=== PATIENT | male | born 1960 | race Caucasian/White ===

== ENCOUNTER 2017-07-18 11:11 | Inpatient (IN) | payer MEDICAID ==
--- NOTE | 2017-07-18 11:19 | ED PDOC ---
Arrival/HPI - General Chief Complaint: Chest Pain Time Seen by Provider: 07/18/17 11:14 Historian: Patient - History of Present Illness Narrative History of Present Illness (Text): 07/18/17 11:13 pt presents with sudden onset of substernal chest pain, diffuse, at most pain was 8/10 initially, that started ~ 3 hours ago. Pt was at work and lifting something when this chest pain occurred; pt states + slight diaphoresis, + mild sob, deep breathing causes increased chest pain with the onset of the chest pain ; pt states + mild lightheadedness/dizziness, nausea/vomiting, vomiting x 1 episode; NO LOC, no fever/chills, no palpitations, no abd pain, no numbness/ tingling, no urinary/bowel changes, no fall/trauma/sick contact, no guide travel denied rashes pt denied bleeding pt is here for further eval pt's without other complaints. PCP: pt does not remember Time/Duration: Prior to Arrival (3 hours) Symptom Onset: Sudden Symptom Course: Worsening Quality: Aching, Pressure, Tightness Severity Level: 8, Severe Activities at Onset: Other (was at work, lifting something) Context: Work Past Medical History - Provider Review Nursing Documentation Reviewed: Yes - Travel History Have you recently traveled outside [place] w/in the past 3 mons?: No - Past History Past History: No Previous - Infectious Disease Hx of Infectious Diseases: None - Tetanus Immunization Tetanus Immunization: Unknown - Cardiac Hx Hypertension: Yes - Psychiatric Hx Substance Use: No Family/Social History - Physician Review Nursing Documentation Reviewed: Yes Family/Social History: No Known Family HX Smoking Status: Never Smoked Hx Alcohol Use: Yes Frequency of alcohol use: Socially Hx Substance Use: No Allergies/Home Meds Allergies/Adverse Reactions: Allergies No Known Allergies Allergy (Verified 07/18/17 11:13) Home Medications: Home Meds Medication Instructions Recorded Confirmed hydroCHLOROthiazide [Microzide] 12.5 mg PO DAILY 07/18/17 07/18/17 Review of Systems - Review of Systems Constitutional: Fatigue Eyes: Normal ENT: Normal Respiratory: SOB Cardiovascular: Chest Pain Gastrointestinal: Nausea, Vomiting. absent: Abdominal Pain Genitourinary Male: Normal Musculoskeletal: Normal Skin: Normal Neurological: Dizziness Endocrine: Normal Hemo/Lymphatic: Normal Psychiatric: Normal Physical Exam Vital Signs Reviewed: Yes Vital Signs Temp Pulse Resp BP Pulse Ox 07/18/17 11:30 76 18 165/118 H 100 07/18/17 11:11 97.3 F L 70 18 184/117 H 100 Temperature: Afebrile Blood Pressure: Hypertensive Pulse: Regular Respiratory Rate: Normal Appearance: Positive for: Well-Appearing, Non-Toxic, Uncomfortable Pain Distress: Mild Mental Status: Positive for: Alert and Oriented X 3 - Systems Exam Head: Present: Atraumatic, Normocephalic Pupils: Present: PERRL Extroacular Muscles: Present: EOMI Conjunctiva: Present: Normal Ears: Present: Normal Mouth: Present: Moist Mucous Membranes, Normal Teeth Pharnyx: Present: Normal Nose (External): Present: Atraumatic Nose (Internal): Present: Normal Inspection Neck: Present: Normal Range of Motion, Trachea Midline, Other (no midline tenderness, no step off). No: Meningeal Signs, MIDLINE TENDERNESS Respiratory/Chest: Present: Clear to Auscultation, Good Air Exchange, Other ( CTA b/l, no w/r/r, no accessory muscle use noted; no tachypenia). No: Respiratory Distress, Accessory Muscle Use Cardiovascular: Present: Regular Rate and Rhythm, Normal S1, S2. No: Murmurs Abdomen: Present: Normal Bowel Sounds, Other (well nourished male, no focal tenderness, no masses/rebound/guarding/rigidity, no arambula's sign, no mcburney' s point tenderness). No: Tenderness, Distention Back: Present: Normal Inspection. No: CVA Tenderness, Midline Tenderness Upper Extremity: Present: Normal Inspection, Normal ROM, NORMAL PULSES, Neurovascularly Intact. No: Deformity Lower Extremity: Present: Normal Inspection, NORMAL PULSES, Normal ROM. No: Edema, Neurovascularly Intact Neurological: Present: GCS=15, CN II-XII Intact, Speech Normal Skin: Present: Warm, Other (mild pallor, dry, cap refill ~ 1 sec, no ulcerations /petechiae) Psychiatric: Present: Alert, Oriented x 3 Medical Decision Making ED Course and Treatment: 11:12 Impression: chest pain, Acute MS i have consider all the differential diagnosis regarding pt's chief medical complaints/clinical findings, including but are not limited to: acute MS A/P: acute MS, chest pain - labs - iv - xray - acs eval - supportive care - observe/reevaluation ACTIVATED CODE HEART AT 11:12 upon obtaining the EKG 07/18/17 11:18 Dr. Varela, intervention cardiologists natural remedy consultant contacted, made aware, agrees with ED Mgt, would like full dose ASA/Plavix 600mg, and heparin started; he is on his way to the ED 07/18/17 11:29 Hospitalists contacted, made aware, agrees with admission hospitalists are at bedside 07/18/17 11:36 pt is made aware of his medical results pt agrees with admission pt states chest pain remains ~ 6/10 BP remains elevated pt is transferred to the prosthetic lab technician Re-evaluation Time: 11:36 Reassessment Condition: Unchanged - Lab Interpretations Lab Results: 07/18/17 11:23 07/18/17 11:23 Lab Results 07/18/17 11:24: Blood Type Pending, Antibody Screen Pending, BBK History Checked No verified bt 07/18/17 11:23: Sodium 143, Potassium 4.1, Chloride 100, Carbon Dioxide 26, Anion Gap 21 H, BUN 18, Creatinine 1.1, Est GFR ( Amer) > 60, Est GFR ( Non-Af Amer) > 60, Random Glucose 240 H, Calcium 10.1, Total Bilirubin 0.5, AST 32, ALT 32, Alkaline Phosphatase 92, Lactate Dehydrogenase 542, Total Creatine Kinase 289 H, CK-MB (CK-2) Pending, CK-MB (CK-2) % Pending, Troponin I Pending, Total Protein 8.2, Albumin 5.1 H, Globulin 3.1, Albumin/Globulin Ratio 1.6 07/18/17 11:23: WBC 11.5 H, RBC 5.67, Hgb 16.7, Hct 46.9, MCV 82.7, MCH 29.5, MCHC 35.6, RDW 13.3, Plt Count 208, MPV 12.1 H, Gran % 82.7 H, Lymph % (Auto) 14.0 L, [place] % (Auto) 2.6, Eos % (Auto) 0.5 L, Baso % (Auto) 0.2, Gran # 9.51 H , Lymph # (Auto) 1.6, [place] # (Auto) 0.3, Eos # (Auto) 0.1, Baso # (Auto) 0.02 I have reviewed the lab results: Yes Interpretation: All labs normal - RAD Interpretation Narrative RAD Interpretations (Text): 07/18/17 15:11 HISTORY: Chest pain COMPARISON: No prior. FINDINGS: LUNGS: No active pulmonary disease. PLEURA: No significant pleural effusion identified, no pneumothorax apparent. CARDIOVASCULAR: Normal. OSSEOUS STRUCTURES: No significant abnormalities. VISUALIZED UPPER ABDOMEN: Normal. OTHER FINDINGS: None. IMPRESSION: No active disease. Radiology Orders: 07/18/17 11:20 CHEST PORTABLE [RAD] Stat Collet Gluer: Radiologist - EKG Interpretation EKG Interpretation (Text): 07/18/17 11:37 NSR at 65 bpm, normal axis, no ectopy, significant ST elevations V1-4, ST depression noted I, L, inverted T In leads III, Abnormal EKG; ACUTE MS; no old ekg to compare with Interpreted by ED Physician: Yes Type: 12 lead EKG Comparison: No previous EKG avail. - Medication Orders Current Medication Orders: Sodium Chloride (Sodium Chloride 0.9%) 1,000 mls @ 100 mls/hr IV .Q10H ROSS Last Admin: 07/18/17 11:31 Dose: 100 mls/hr Discontinued Medications Aspirin (Aspirin) 325 mg PO STAT STA Stop: 07/18/17 11:21 Last Admin: 07/18/17 11:25 Dose: Clopidogrel Bisulfate (Plavix) 600 mg PO STAT STA Stop: 07/18/17 11:21 Last Admin: 07/18/17 11:25 Dose: Heparin Sodium (Porcine) (Heparin) 5,000 units IV ONCE ONE PRN Reason: Protocol Stop: 07/18/17 11:23 Last Admin: 07/18/17 11:28 Dose: 5,000 units Hydromorphone HCl (Dilaudid) 0.5 mg IVP STAT STA Stop: 07/18/17 11:27 Last Admin: 07/18/17 11:31 Dose: 0.5 mg Heparin Sodium/Dextrose (Heparin 25,000 Units/250ml In D5w) 25,000 units in 250 mls @ 9.798 mls/hr IV .Q24H ONE; 12 UNITS/KG/HR PRN Reason: Protocol Stop: 07/18/17 11:21 Last Admin: 07/18/17 11:35 Dose: 9.798 mls/hr Labetalol HCl (Trandate) 20 mg IV STAT STA Stop: 07/18/17 11:34 Nitroglycerin (Nitro-Bid 2% Oint) 1 ea TOP STAT STA Stop: 07/18/17 11:22 Last Admin: 07/18/17 11:27 Dose: 1 ea - Scribe Statement The provider has reviewed the documentation as recorded by the Scribe Laura Caballero Provider Scribe Attestation: All medical record entries made by the Scribe were at my direction and personally dictated by me. I have reviewed the chart and agree that the record accurately reflects my personal performance of the history, physical exam, medical decision making, and the department course for this patient. I have also personally directed, reviewed, and agree with the discharge instructions and disposition. Disposition/Present on Arrival - Present on Arrival Any Indicators Present on Arrival: No History of DVT/PE: No History of Uncontrolled Diabetes: No Urinary Catheter: No History of Decub. Ulcer: No History Surgical Site Infection Following: None - Disposition Have Diagnosis and Disposition been Completed?: Yes Diagnosis: Acute MS, Hypertensive urgency Disposition: HOSPITALIZED Disposition Time: 11:39 Patient Plan: Admission, ICU Patient Problems: Current Active Problems Problem Status Onset Acute MS Acute Hypertensive urgency Acute Condition: SERIOUS Print Language: NAMIBIAN Forms: [employer] (Bhutanese)
[2017-07-18] MEDS ORDERED: Heparin 25,000units in D5W 25,000 UNITS/250 ML BAG IV ONE (11:20)
[2017-07-18] MEDS ORDERED: Nitroglycerin 2% Ointment Foilpak UD TOP STA (11:21)
[2017-07-18] MEDS ORDERED: Morphine 2 mg/ml ISec IVP STA (11:23)
[2017-07-18] MEDS ORDERED: HYDROmorphone 0.5 mg/0.5 ml ISec IVP STA (11:26)
[2017-07-18] MEDS ORDERED: Phenylephrine 10 mg/ml Inj ONE (11:28)
[2017-07-18] MEDS ORDERED: Lidocaine 2% Inj (20ml) ONE (11:28)
[2017-07-18] MEDS ORDERED: Midazolam 2 MG/2 ML VIAL ONE ×2 (11:28→12:02)
[2017-07-18] MEDS ORDERED: Iodixanol 320 MG/ML 100 ML BOTTLE IV ONE (11:29)
[2017-07-18] MEDS ORDERED: Iohexol 350mgl/ml 50 ML ONE (11:29)
[2017-07-18] MEDS ORDERED: Iodixanol 320 MG/ML 200 ML BOTTLE IV ONE (11:29)
[2017-07-18] MEDS ORDERED: Nitroglycerin 50mg in D5W 50 MG/250 ML BOTTLE IV ONE (11:29)
[2017-07-18] MEDS ORDERED: Sodium Chloride 0.9% 1,000 ML IV SCH (11:30)
[2017-07-18] MEDS ORDERED: Labetalol 5 mg/ml Inj 20ML IV STA (11:33)
[2017-07-18 11:34] LABS: BASO # 0.02 K/mm3 (0.0-2.0); BASO % 0.2 % (0.0-3.0); EOS # 0.1 (0.0-0.7); EOS % 0.5 % (1.5-5.0); GRAN # 9.51 (1.4-6.5); GRAN % 82.7 % (50.0-68.0); HEMOGLOBIN 16.7 g/dL (14.0-18.0); LYMPH # 1.6 (1.2-3.4); MEAN CELL VOLUME 82.7 fl (80.0-105.0); MEAN CORPUSCULAR HEMOGLOBIN 29.5 pg (25.0-35.0); MEAN CORPUSCULAR HGB CONC 35.6 g/dl (31.0-37.0); MEAN PLATELET VOLUME 12.1 fl (7.0-11.0); MONO # 0.3 (0.1-0.6); MONO % 2.6 % (1.0-6.0); RBC 5.67 10^6/uL (3.5-6.1); RED CELL DISTRIBUTION WIDTH 13.3 % (11.5-14.5); WHITE BLOOD COUNT 11.5 10^3/ul (4.5-11.0)
[2017-07-18 11:36] LABS: ALB/GLOB RATIO 1.6 (1.1-1.8); ALBUMIN 5.1 g/dL (3.0-4.8); ALT/SGPT 32 U/L (7-56); AST/SGOT 32 U/L (17-59); BLOOD UREA NITROGEN 18 mg/dL (7-21); CALCIUM 10.1 mg/dL (8.4-10.5); GFR AFRICAN-AMERICAN > 60; GFR NON-AFRICAN AMERICAN > 60
[2017-07-18 11:48] LABS: TROPONIN I 0.05 ng/mL
[2017-07-18 12:01] LABS: INR 0.97 (0.93-1.08); PARTIAL THROMBOPLASTIN TIME 31.7 Seconds (25.1-36.5); PROTHROMBIN TIME 11.2 SECONDS (9.4-12.5)
--- NOTE | 2017-07-18 12:13 | RAD ---
HISTORY: Chest pain COMPARISON: No prior. FINDINGS: LUNGS: No active pulmonary disease. PLEURA: No significant pleural effusion identified, no pneumothorax apparent. CARDIOVASCULAR: Normal. OSSEOUS STRUCTURES: No significant abnormalities. VISUALIZED UPPER ABDOMEN: Normal. OTHER FINDINGS: None. IMPRESSION: No active disease.
--- NOTE | 2017-07-18 12:50 | CP.PCM.HP ---
<Lorna Scott - Last Filed: 07/18/17 19:14> History of Present Illness - History of Present Illness History of Present Illness: 57yo male PMHx HTN presents with sudden retrosternal chest pain for 3 hours. 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 He rated it 8/10 at the time and throughout his chest wall but did not radiate to his L arm or up his jaw. Patient believed he was having gastritis and took some tums. However when pain did not subside, he decided to come into the ED. Patient admitted to diaphoresis, mild SOB, chest pain with deep inspiration, light headedness, dizziness, and nausea with vomiting x 1. He denies fever, chills, palpitations, abdominal pain, bowel/bladder changes, numbness/tingling/pain in his legs b/l. In the ER patient was noted to have ST elevations in leads V1-4 and depressions in lead I and avL with inverted T waves in leads III. Code Heart was activated at 11:12am and patient was taken for Cardiac cath with Dr. Singh. Patient was given full dose ASA/Plavis 600mg and Heparin bolus prior to being taken for cath. PMHx: HTN Meds: pls see chart ALL: NKDA SocHx: denies tobacco/drug use. Drinks 1-2beers socially over a weekend. 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 Lives with . No sick contacts/recent travel. FamHx: denies PMD: doesn't remember name Present on Admission - Present on Admission Any Indicators Present on Admission: No Review of Systems - Review of Systems All systems: reviewed and no additional remarkable complaints except - Constitutional Constitutional: As Per HPI. absent: Chills, Fever - EENT Eyes: As Per HPI. absent: Blurred Vision Ears: As Per HPI. absent: Dizziness Nose/Mouth/Throat: As Per HPI. absent: Sore Throat - Cardiovascular Cardiovascular: As Per HPI, Chest Pain, Dyspnea. absent: Edema, Leg Edema, Radiating Pain - Respiratory Respiratory: As Per HPI, Dyspnea. absent: Cough, Wheezing - Gastrointestinal Gastrointestinal: As Per HPI, Heartburn, Nausea, Vomiting (x1). absent: Abdominal Pain, Constipation, Diarrhea, Melena - Genitourinary Genitourinary: As Per HPI. absent: Dysuria, Hematuria - Musculoskeletal Musculoskeletal: As Per HPI. absent: Numbness, Tingling - Integumentary Integumentary: As Per HPI. absent: Dry Skin, Rash - Neurological Neurological: As Per HPI. absent: Dizziness, Numbness, Tingling - Endocrine Endocrine: As Per HPI. absent: Polydipsia, Polyphagia, Polyuria - Hematologic/Lymphatic Hematologic: As Per HPI. absent: Easy Bleeding, Easy Bruising, Lymphadenopathy Past Patient History - Past Social History Smoking Status: Never Smoked - CARDIAC Hx Hypertension: Yes - PSYCHIATRIC Hx Substance Use: No - SURGICAL HISTORY Hx Surgeries: No Meds Allergies/Adverse Reactions: Allergies Allergy/AdvReac Type Severity Reaction Status Date / Time No Known Allergies Allergy Verified 07/18/17 11:13 Physical Exam - Constitutional Appears: In Acute Distress - Head Exam Head Exam: ATRAUMATIC, NORMAL INSPECTION, NORMOCEPHALIC - Eye Exam Eye Exam: EOMI, Normal appearance. absent: Conjunctival injection, Scleral icterus - ENT Exam ENT Exam: Mucous Membranes Moist - Neck Exam Neck exam: Positive for: Normal Inspection. Negative for: Lymphadenopathy - Respiratory Exam Respiratory Exam: Clear to Auscultation Bilateral. absent: Rales, Rhonchi, Wheezes - Cardiovascular Exam Cardiovascular Exam: Tachycardia, REGULAR RHYTHM, +S1, +S2 - GI/Abdominal Exam GI & Abdominal Exam: Normal Bowel Sounds, Soft. absent: Firm, Rigid, Tenderness - Extremities Exam Extremities exam: Positive for: normal inspection. Negative for: pedal edema, tenderness - Neurological Exam Neurological exam: Alert, CN II-XII Intact, Oriented x3 - Psychiatric Exam Psychiatric exam: Anxious - Skin Skin Exam: Dry, Intact, Normal Color, Warm Results - Vital Signs Recent Vital Signs: Last Vital Signs Temp 97.3 F L 07/18/17 11:11 Pulse 70 07/18/17 11:56 Resp 18 07/18/17 11:30 BP 184/117 H 07/18/17 11:40 Pulse Ox 100 07/18/17 11:30 - Labs Result Diagrams: 07/18/17 11:23 07/18/17 11:23 Labs: Laboratory Results - last 24 hr 07/18/17 07/18/17 07/18/17 10:40 11:23 11:23 WBC 11.5 H RBC 5.67 Hgb 16.7 Hct 46.9 MCV 82.7 MCH 29.5 MCHC 35.6 RDW 13.3 Plt Count 208 MPV 12.1 H Gran % 82.7 H Lymph % (Auto) 14.0 L [place] % (Auto) 2.6 Eos % (Auto) 0.5 L Baso % (Auto) 0.2 Gran # 9.51 H Lymph # (Auto) 1.6 [place] # (Auto) 0.3 Eos # (Auto) 0.1 Baso # (Auto) 0.02 PT 11.2 INR 0.97 APTT 31.7 Sodium Potassium Chloride Carbon Dioxide Anion Gap BUN Creatinine Est GFR ( Amer) Est GFR (Non-Af Amer) Random Glucose Calcium Total Bilirubin AST ALT Alkaline Phosphatase Lactate Dehydrogenase Total Creatine Kinase CK-MB (CK-2) CK-MB (CK-2) % Troponin I Total Protein Albumin Globulin Albumin/Globulin Ratio Blood Type Blood Type Confirm AB POSITIVE Antibody Screen BBK History Checked 07/18/17 07/18/17 11:23 11:24 WBC RBC Hgb Hct MCV MCH MCHC RDW Plt Count MPV Gran % Lymph % (Auto) [place] % (Auto) Eos % (Auto) Baso % (Auto) Gran # Lymph # (Auto) [place] # (Auto) Eos # (Auto) Baso # (Auto) PT INR APTT Sodium 143 Potassium 4.1 Chloride 100 Carbon Dioxide 26 Anion Gap 21 H BUN 18 Creatinine 1.1 Est GFR ( Amer) > 60 Est GFR (Non-Af Amer) > 60 Random Glucose 240 H Calcium 10.1 Total Bilirubin 0.5 AST 32 ALT 32 Alkaline Phosphatase 92 Lactate Dehydrogenase 542 Total Creatine Kinase 289 H CK-MB (CK-2) 3.0 CK-MB (CK-2) % Cancelled Troponin I 0.05 Total Protein 8.2 Albumin 5.1 H Globulin 3.1 Albumin/Globulin Ratio 1.6 Blood Type AB POSITIVE Blood Type Confirm Antibody Screen Negative BBK History Checked No verified bt Assessment & Plan - Assessment and Plan (Free Text) Assessment: 57yo male PMHx HTN presents with sudden retrosternal chest pain for 3 hours Plan: ACS -patient had cardiac cath showing complete occlusion of LAD s/p stent -ASA, Palvix, Lipitor, Lopressor, Lisinopril -f/u lipid panel -f/u HgbA1c -f/u Echo -RISS -Accucheck -Tylenol for mild pain -HHD -Cardiology on board Anxiety -Xaafiax and Ambien Discussed with Dr. Ariella Scott PGY2 <Sushil Krishnan - Last Filed: 07/19/17 12:11> Results - Vital Signs Recent Vital Signs: Last Vital Signs Temp 98.8 F 07/19/17 04:00 Pulse 61 07/19/17 09:30 Resp 18 07/19/17 09:20 BP 125/81 07/19/17 09:30 Pulse Ox 99 07/19/17 09:20 - Labs Result Diagrams: 07/19/17 05:00 07/19/17 05:00 Labs: Laboratory Results - last 24 hr 07/18/17 07/18/17 07/18/17 16:26 17:30 21:57 WBC RBC Hgb Hct MCV MCH MCHC RDW Plt Count MPV Gran % Lymph % (Auto) [place] % (Auto) Eos % (Auto) Baso % (Auto) Gran # Lymph # (Auto) [place] # (Auto) Eos # (Auto) Baso # (Auto) Sodium Potassium Chloride Carbon Dioxide Anion Gap BUN Creatinine Est GFR ( Amer) Est GFR (Non-Af Amer) POC Glucose (mg/dL) 156 H 190 H Random Glucose Hemoglobin A1c Calcium Troponin I 201.00 H* D Triglycerides Cholesterol LDL Cholesterol Direct HDL Cholesterol TSH 3rd Generation 07/19/17 07/19/17 07/19/17 00:20 05:00 05:00 WBC 13.5 H RBC 5.15 Hgb 15.1 Hct 43.1 MCV 83.7 MCH 29.3 MCHC 35.0 RDW 13.7 Plt Count 202 MPV 12.3 H Gran % 78.6 H Lymph % (Auto) 12.7 L [place] % (Auto) 8.1 H Eos % (Auto) 0.5 L Baso % (Auto) 0.1 Gran # 10.61 H Lymph # (Auto) 1.7 [place] # (Auto) 1.1 H Eos # (Auto) 0.1 Baso # (Auto) 0.01 Sodium 140 Potassium 3.9 Chloride 101 Carbon Dioxide 31 Anion Gap 12 BUN 19 Creatinine 1.1 Est GFR ( Amer) > 60 Est GFR (Non-Af Amer) > 60 POC Glucose (mg/dL) Random Glucose 180 H Hemoglobin A1c Calcium 9.5 Troponin I 98.80 H* D Triglycerides 117 Cholesterol 154 LDL Cholesterol Direct 65 HDL Cholesterol 63 H TSH 3rd Generation 07/19/17 07/19/17 07/19/17 05:00 05:00 07:29 WBC RBC Hgb Hct MCV MCH MCHC RDW Plt Count MPV Gran % Lymph % (Auto) [place] % (Auto) Eos % (Auto) Baso % (Auto) Gran # Lymph # (Auto) [place] # (Auto) Eos # (Auto) Baso # (Auto) Sodium Potassium Chloride Carbon Dioxide Anion Gap BUN Creatinine Est GFR ( Amer) Est GFR (Non-Af Amer) POC Glucose (mg/dL) 136 H Random Glucose Hemoglobin A1c 7.5 H Calcium Troponin I 73.00 H* D Triglycerides Cholesterol LDL Cholesterol Direct HDL Cholesterol TSH 3rd Generation 07/19/17 08:00 WBC RBC Hgb Hct MCV MCH MCHC RDW Plt Count MPV Gran % Lymph % (Auto) [place] % (Auto) Eos % (Auto) Baso % (Auto) Gran # Lymph # (Auto) [place] # (Auto) Eos # (Auto) Baso # (Auto) Sodium Potassium Chloride Carbon Dioxide Anion Gap BUN Creatinine Est GFR ( Amer) Est GFR (Non-Af Amer) POC Glucose (mg/dL) Random Glucose Hemoglobin A1c Calcium Troponin I Triglycerides Cholesterol LDL Cholesterol Direct HDL Cholesterol TSH 3rd Generation 1.16 Attending/Attestation - Attestation I have personally seen and examined this patient.: Yes I have fully participated in the care of the patient.: Yes I have reviewed all pertinent clinical information: Yes Notes (Text): 07/19/17 12:06 Medical record note made by the resident after discussion with my direction and input after the patient was personally seen and examined by me. I have reviewed the chart and agree that the record accurately reflects by personal performance of the history, physical exam, data review, and medical decision-making, in the course for the patient. I have also personally directed the plan of care. 57 yrs old male with PMH of HTN is admitted with acute anterior wall STEMI, Patient underwent cardiac catherization and is SP drug eluting LAD stent by .We will continue ASA/Plavix/Metoprolol/statin and LACEY.We will get 2D eCHO. Patient blood sugars are running high, likely has DM, we will monitor with sliding scale and will order Hemoglobin 1 AC. Management plan was discussed in detail with patient. Education was provided.
[2017-07-18] MEDS ORDERED: Morphine 2 mg/ml ISec IVP PRN (15:35)
--- NOTE | 2017-07-18 16:02 | CON ---
DATE: 07/18/2017 REQUESTING PHYSICIAN: Sushil Krishnan MD. REASON FOR CONSULTATION: Acute myocardial infarction. HISTORY: This is a 57-year male with a history of hypertension, who presents to the emergency room with complaints of retrosternal chest pain. 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 His pain had been present for actually 2-3 hours before admission. In the emergency room, he was noted to have ST elevations across the precordium and emergency catheterization was advised. He denies any prior cardiac history. When seen in the test lab technician, he was actively having chest pain. He states he has a history of hypertension. He was treated with hydrochlorothiazide. He is not diabetic to the best of his knowledge. He believes his cholesterol is normal. He does not smoke. There is no family history of premature heart disease. PAST MEDICAL HISTORY: Otherwise unremarkable. MEDICATIONS: Hydrochlorothiazide. He was loaded with aspirin and Plavix and bolus of IV heparin in the emergency room. SOCIAL HISTORY: He is . Lives with his . 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 He does not smoke or drink. FAMILY HISTORY: Unremarkable for premature heart disease. REVIEW OF SYSTEMS: Ten-point review of systems was limited, but otherwise unremarkable. PHYSICAL EXAMINATION: GENERAL: He is an anxious-appearing middle-aged male. VITAL SIGNS: His blood pressure is 184/110 with a pulse of 100, respirations are 14. He is afebrile. HEENT: Normocephalic, atraumatic. NECK: Supple. No JVD noted. CHEST: Clear to auscultation and percussion. HEART: PMI in normal position. No pathology murmur, rubs or gallops noted. ABDOMEN: Soft, nontender. Normoactive bowel sounds. EXTREMITIES: No edema. SKIN: Warm and dry. PSYCHIATRIC: Normal mood and affect. NEUROLOGIC: Alert and oriented x3. No gross motor or sensory deficits appreciated. DIAGNOSTIC DATA: Troponin 0.05, CK is 289, potassium 4.1, BUN and creatinine 18 and 1.1, random glucose is 240. White count 11.5, hemoglobin and hematocrit 16.7 and 46.9 with a platelet count 208,000. PT/PTT were normal. Electrocardiogram revealed sinus rhythm with anterior ST elevations and reciprocal changes. Chest x-ray revealed normal cardiac silhouette with clear lung castro. IMPRESSION: 1. Acute anterior wall myocardial infarction, likely secondary to left anterior descending occlusion. 2. History of hypertension and elevated glucose suggestive of diabetes. RECOMMENDATIONS: The patient will be brought emergently to the cardiac catheterization lab and undergo left heart catheterization and possible percutaneous intervention if a suitable lesion is found. Risks and benefits have been discussed with the patient. Full plans will be made based on the results of his catheterization findings. Paul Singh MD
[2017-07-18] MEDS: Insulin Lispro (humaLOG) LOW Coverage SC SCH ×2 (16:55→22:00)
[2017-07-18] MEDS ORDERED: Pneumococcal 23-Valent Vaccine IM ONE (21:57)
--- NOTE | 2017-07-18 23:39 | CARD ---
APPROVED REPORT EKG Measurement Heart [id number] <Conclusion> Accelerated Idioventricular rhythm, ? reperfusion Cannot rule out Septal infarct, age undetermined T wave abnormality, consider lateral ischemia Abnormal ECG
--- NOTE | 2017-07-18 23:40 | CARD ---
APPROVED REPORT EKG Measurement Heart [id number] <Conclusion> Normal sinus rhythm with sinus arrhythmia Anteroseptal infarct, possibly acute ACUTE SC Abnormal ECG
--- NOTE | 2017-07-19 01:28 | CON ---
DATE: 07/18/2017 [facility] [employer] CONSULTATION REQUESTING PHYSICIAN: Sushil Krishnan MD. CHIEF COMPLAINT: The patient presented with chest discomfort, chest pain, shortness of breath. HISTORY OF PRESENT ILLNESS: Mr. Christensen, he is a 57-year-old male with history of hypertension for which he takes hydrochlorothiazide. The patient stated that he had chest pain, shortness of breath with discomfort and presented to the emergency room. Code Heart was called and patient had cardiac catheterization, noted to have a proximal LAD lesion and stents were placed. At this time, the patient has been admitted to the Intensive Care Unit and hemodynamically stable. He has no complaints of present shortness of breath. No cough. No wheezing. No chest congestion. No abdominal pain. No fever, chills, nausea or vomiting. No diarrhea. PAST MEDICAL HISTORY: As above. ALLERGIES: HE HAS NO KNOWN ALLERGIES. CURRENT MEDICATIONS: Can be evaluated as per the nurse's intake form. SOCIAL HISTORY: No history of substance abuse. No alcohol abuse. He is a nonsmoker. FAMILY HISTORY: Noncontributory. REVIEW OF SYSTEMS: CONSTITUTIONAL: All negative. HEENT: All negative. CARDIOVASCULAR: Patient had the chest pain. RESPIRATORY: Did have some shortness of breath. GASTROINTESTINAL: All negative. : All negative. MUSCULOSKELETAL: All negative. NEUROPSYCHIATRIC: All negative. HEMATOLOGIC: All negative. IMMUNOLOGIC: All negative. INTEGRITY: All negative. PHYSICAL EXAMINATION: VITAL SIGNS: Note that his temperature is 97.3, his pulse is 70, respirations are 18 and BP is 184/117. HEENT: Head is atraumatic, normocephalic. Eyes reactive to light. Ear, nose and throat seemed to be within normal limits. NECK: Supple. No JVD. No thyroid enlargement. No lymph nodes. HEART: Has regular rate and rhythm. Normal S1, S2. LUNGS: Reveal good breath sounds bilaterally. ABDOMEN: Soft. Decreased bowel sounds. GENITALIA AND RECTAL: Deferred. MUSCULOSKELETAL: No joint deformities. EXTREMITIES: Reveal no edema. NEUROLOGIC: He seemed to be grossly intact. LABORATORY DATA: As far as his laboratories are concerned, his white count is 11.5, hemoglobin is 16.7, hematocrit 46.9 with platelets of 208,000. PT is 11.2, INR is 0.97 and PTT is 31.7. Sodium is 143, potassium 4.1, chloride 100, CO2 of 26 with a BUN of 18, creatinine of 1.1 and glucose of 240. Chest x-ray reveals no infiltrates. IMPRESSION: As far as my impression is concerned, this patient has acute myocardial infarction with coronary artery disease, proximal left anterior descending (coronary artery) lesion that was stented. Has a history of hypertension. PLAN: As far as our plan, we will continue with O2 via nasal cannula. Patient has been admitted to the Intensive Care Unit. He is getting Lipitor, Lopressor, Plavix, Xanax and IV fluids, Colace, Ecotrin as well as Ambien. We will continue to treat aggressively along with the other consultants and the primary care doctor. Reyes Humphrey MD
[2017-07-19] MEDS: Pantoprazole 40 mg EC Tab PO SCH (05:41)
[2017-07-19 05:55] LABS: BLOOD UREA NITROGEN 19 mg/dL (7-21); CALCIUM 9.5 mg/dL (8.4-10.5); GFR AFRICAN-AMERICAN > 60; GFR NON-AFRICAN AMERICAN > 60; HDL CHOLESTEROL 63 mg/dL (29-60)
[2017-07-19 06:05] LABS: LDL CHOLESTEROL 65 mg/dL (0-129)
[2017-07-19 06:06] LABS: BASO # 0.01 K/mm3 (0.0-2.0); BASO % 0.1 % (0.0-3.0); EOS # 0.1 (0.0-0.7); LYMPH # 1.7 (1.2-3.4); MONO # 1.1 (0.1-0.6); RED CELL DISTRIBUTION WIDTH 13.7 % (11.5-14.5); WHITE BLOOD COUNT 13.5 10^3/ul (4.5-11.0)
--- NOTE | 2017-07-19 07:10 | CP.PCM.PN ---
<Cherry Robb - Last Filed: 07/19/17 09:08> Subjective - Date & Time of Evaluation Date of Evaluation: 07/19/17 Time of Evaluation: 08:05 - Subjective Subjective: Progress Note for HospitialistCody PGY2 Patient seen and examined at bedside. As per nursing staff, there were no acute overnight events. Patient reports feeling much better this am. He denies chest pain, shortness of breath, nausea/vomiting/diarrhea, fever/chills, numbness or tingling. He had a stent placed in his LAD yesterday. Objective - Vital Signs/Intake and Output Vital Signs (last 24 hours): Temp Pulse Resp BP Pulse Ox 98.8 F 62 24 124/79 100 07/19/17 04:00 07/19/17 06:00 07/19/17 06:00 07/19/17 06:00 07/19/17 06:00 Intake and Output: 07/19/17 07/19/17 06:59 18:59 Intake Total 2000 Output Total 1850 Balance 150 - Medications Medications: Current Medications Acetaminophen (Tylenol 325mg Tab) 650 mg PO Q4H PRN PRN Reason: Pain, Mild (1-3) Last Admin: 07/18/17 15:56 Dose: 650 mg Alprazolam (Xanax) 0.25 mg PO BID PRN PRN Reason: Anxiety Stop: 07/25/17 12:33 Last Admin: 07/18/17 15:56 Dose: 0.25 mg Aspirin (Ecotrin) 81 mg PO DAILY [facility] Atorvastatin Calcium (Lipitor) 80 mg PO DIN [facility] Last Admin: 07/18/17 18:07 Dose: 80 mg Clopidogrel Bisulfate (Plavix) 75 mg PO DAILY [facility] Docusate Sodium (Colace) 100 mg PO BID [facility] Last Admin: 07/18/17 18:07 Dose: 100 mg Insulin Human Lispro (Humalog Low) 0 units SC ACHS [facility] PRN Reason: Protocol Last Admin: 07/18/17 22:00 Dose: Not Given Lisinopril (Zestril) 5 mg PO DAILY [facility] Metoprolol Tartrate (Lopressor) 50 mg PO Q12 [facility] Pantoprazole Sodium (Protonix Ec Tab) 40 mg PO 0600 [facility] Last Admin: 07/19/17 05:41 Dose: 40 mg Zolpidem Tartrate (Ambien) 5 mg PO HS PRN PRN Reason: Insomnia - Labs Labs: 07/19/17 05:00 PT 11.2 SECONDS (9.4-12.5) 07/18/17 11:23 INR 0.97 (0.93-1.08) 07/18/17 11:23 APTT 31.7 Seconds (25.1-36.5) 07/18/17 11:23 - Constitutional Appears: No Acute Distress - Head Exam Head Exam: ATRAUMATIC, NORMAL INSPECTION, NORMOCEPHALIC - Eye Exam Eye Exam: EOMI, Normal appearance, PERRL Pupil Exam: NORMAL ACCOMODATION, PERRL - ENT Exam ENT Exam: Mucous Membranes Moist - Neck Exam Neck Exam: Full ROM - Respiratory Exam Respiratory Exam: Clear to Ausculation Bilateral, NORMAL BREATHING PATTERN. absent: Rales, Rhonchi, Wheezes - Cardiovascular Exam Cardiovascular Exam: REGULAR RHYTHM, +S1, +S2. absent: Gallop, Rubs, Murmur - GI/Abdominal Exam GI & Abdominal Exam: Soft, Normal Bowel Sounds. absent: Rigid, Tenderness, Mass , Rebound - Extremities Exam Extremities Exam: Normal Inspection. absent: Calf Tenderness, Pedal Edema - Neurological Exam Neurological Exam: Alert, Awake, CN II-XII Intact, Oriented x3 - Psychiatric Exam Psychiatric exam: Normal Affect, Normal Mood - Skin Skin Exam: Dry, Intact, Warm Additional comments: R groin cath site clean and dry- no hematoma or bleeding noted Assessment and Plan - Assessment and Plan (Free Text) Assessment: This is a 57yo male with past medical history of HTN who was admitted for STEMI. Code heart was called. Patient was sent to [facility] and had a stent placed in the LAD. Plan: 1. ACS - s/p stent in LAD - Cardio on consult - Echo ordered - Continue ASA, Plavix, Lipitor - Patient started on Lisinopril and Metoprolol - Lipid panel showed LDL <70, continue statin - TSH pending 2. Hx of HTN - Continue Lisinopril and Metoprolol 3. Elevated blood glucose - fasting sugars 180s - HgbA1c pending - Carb consistent diet - Will get tobacco educator - Continue ISS for now - Will d/c patient with Metformin 500 BID 4. Anxiety - Xanax prn - Ambien prn for insomnia GI ppx: Protonix DVT ppx: SCDs, patient also on Plavix and is ambulating Dispo: Patient is stable and will be transferred to telemetry. Plan is for d/c tomorrow after echo is obtained. case seen, discussed and reviewed with attending. Cody Robb PGY2 <Sushil Krishnan - Last Filed: 07/19/17 12:13> Objective - Vital Signs/Intake and Output Vital Signs (last 24 hours): Temp Pulse Resp BP Pulse Ox 98.8 F 61 18 125/81 99 07/19/17 04:00 07/19/17 09:30 07/19/17 09:20 07/19/17 09:30 07/19/17 09:20 Intake and Output: 07/19/17 07/19/17 06:59 18:59 Intake Total 2000 Output Total 1850 Balance 150 - Medications Medications: Current Medications Acetaminophen (Tylenol 325mg Tab) 650 mg PO Q4H PRN PRN Reason: Pain, Mild (1-3) Last Admin: 07/18/17 15:56 Dose: 650 mg Alprazolam (Xanax) 0.25 mg PO BID PRN PRN Reason: Anxiety Stop: 07/25/17 12:33 Last Admin: 07/18/17 15:56 Dose: 0.25 mg Aspirin (Ecotrin) 81 mg PO DAILY [facility] Last Admin: 07/19/17 09:29 Dose: 81 mg Atorvastatin Calcium (Lipitor) 80 mg PO DIN [facility] Last Admin: 07/18/17 18:07 Dose: 80 mg Clopidogrel Bisulfate (Plavix) 75 mg PO DAILY [facility] Last Admin: 07/19/17 09:29 Dose: 75 mg Docusate Sodium (Colace) 100 mg PO BID [facility] Last Admin: 07/19/17 09:29 Dose: 100 mg Insulin Human Lispro (Humalog Low) 0 units SC ACHS [facility] PRN Reason: Protocol Last Admin: 07/18/17 22:00 Dose: Not Given Lisinopril (Zestril) 5 mg PO DAILY [facility] Last Admin: 07/19/17 09:29 Dose: 5 mg Metoprolol Tartrate (Lopressor) 50 mg PO Q12 [facility] Last Admin: 07/19/17 09:30 Dose: 50 mg Pantoprazole Sodium (Protonix Ec Tab) 40 mg PO 0600 [facility] Last Admin: 07/19/17 05:41 Dose: 40 mg Zolpidem Tartrate (Ambien) 5 mg PO HS PRN PRN Reason: Insomnia - Labs Labs: 07/19/17 05:00 07/19/17 05:00 PT 11.2 SECONDS (9.4-12.5) 07/18/17 11:23 INR 0.97 (0.93-1.08) 07/18/17 11:23 APTT 31.7 Seconds (25.1-36.5) 07/18/17 11:23 Attending/Attestation - Attestation I have personally seen and examined this patient.: Yes I have fully participated in the care of the patient.: Yes I have reviewed all pertinent clinical information, including history, physical exam and plan: Yes Notes (Text): 07/19/17 12:12 Medical record note made by the resident after discussion with my direction and input after the patient was personally seen and examined by me. I have reviewed the chart and agree that the record accurately reflects by personal performance of the history, physical exam, data review, and medical decision-making, in the course for the patient. I have also personally directed the plan of care. 57 yrs old male with PMH of HTN was admitted with acute anterior wall STEMI, underwent cardiac catherization and is SP drug eluting LAD stent by .We will continue ASA/Plavix/Metoprolol/statin and LACEY.We will follow up 2D eCHO. Patient blood sugars are running high, likely has DM, we will monitor with sliding scale and will order Hemoglobin 1 AC. Management plan was discussed in detail with patient. Education was provided.
[2017-07-19 07:58] LABS: EOS % 0.5 % (1.5-5.0); GRAN # 10.61 (1.4-6.5); GRAN % 78.6 % (50.0-68.0); HEMOGLOBIN 15.1 g/dL (14.0-18.0); LYMPH % 12.7 % (22.0-35.0); MEAN CELL VOLUME 83.7 fl (80.0-105.0); MEAN CORPUSCULAR HEMOGLOBIN 29.3 pg (25.0-35.0); MEAN PLATELET VOLUME 12.3 fl (7.0-11.0); MONO % 8.1 % (1.0-6.0); RBC 5.15 10^6/uL (3.5-6.1)
--- NOTE | 2017-07-19 09:21 | PN ---
DATE: 07/19/2017 CLIENT PROGRAM MANAGER NOTE SUBJECTIVE: The patient is resting in bed, had an uneventful night. No complaints of chest pain. No more nauseousness or vomiting. No abdominal pain. No complaints of short shortness of breath, cough or wheezing. PHYSICAL EXAMINATION: VITAL SIGNS: Physical exam note that his temperature is 98.8, his pulse is 62, respirations of 24 and BP is 124/79, O2 saturation is 100%. SKIN: Warm and dry. HEENT: Head atraumatic, normocephalic. Eyes reactive to light. Ear, nose and throat seemed to be within normal limits. NECK: Supple. No JVD. No thyroid enlargement. No lymph nodes. HEART: Regular rate and rhythm. Normal S1 and S2. LUNGS: Reveal good breath sounds bilaterally. ABDOMEN: Soft, nontender. Normal bowel sounds. No organomegaly noted. GENITALIA AND RECTAL: Deferred. MUSCULOSKELETAL: No joint deformities. EXTREMITIES: Reveal no significant edema. NEUROLOGICAL: He seemed to be grossly intact. LABORATORY DATA: As far as laboratories, they are pending for the morning. IMPRESSION: As far as my impression, the patient has acute myocardial infarction with coronary artery disease and the proximal left anterior descending coronary artery lesion that was stented. He has a history of hypertension as well. PLAN: As far as our plan, we will continue with O2 via nasal cannula, continue with his Lipitor and Lopressor, Plavix, Xanax, Zofran and Protonix. The patient is also on IV fluids, Colace and Ecotrin. We will continue to treat aggressively and follow closely along with the other consultants and the primary care doctor. Reyes Humphrey MD
--- NOTE | 2017-07-19 09:47 | PN ---
DATE: 07/19/2017 SUBJECTIVE: The patient is seen lying in bed in the CCU. He appears comfortable. He has had no further chest discomfort. His peak troponin was 201 with a followup of 98.8. He has been hemodynamically stable with no significant dysrhythmias. CURRENT MEDICATIONS: Remain Ecotrin once daily, insulin coverage, Lipitor 80 mg daily, metoprolol 50 mg every 12 hours, Plavix 75 mg daily, Protonix 40 mg daily, Xanax p.r.n. and Zestril 5 mg daily. OBJECTIVE: GENERAL: He is a middle-aged man, who appears comfortable at rest. VITAL SIGNS: His blood pressure is 124/80 with a pulse of 60, respirations are 16. He is afebrile. HEENT: No JVD. CHEST: Clear to auscultation and percussion. HEART: PMI in normal position. No pathologic murmur, rubs or gallops noted. ABDOMEN: Soft, nontender, normoactive bowel sounds. EXTREMITIES: No edema. DIAGNOSTIC DATA: Electrocardiogram reveals sinus rhythm with a nonspecific intraventricular conduction delay. White count is 13.5, hemoglobin and hematocrit of 15.1 and 43.1 with platelet count of 202,000. Potassium is 3.9, BUN and creatinine of 19 and 1.1, glucose is 180. Morning troponin is pending. Cholesterol 154 with an HDL of 63, LDL of 65 and triglycerides of 117. IMPRESSION: 1. Recent anterior wall myocardial infarction, successfully treated with percutaneous coronary intervention of left anterior descending with drug-eluting stent. Myocardial infarction course uncomplicated thus far. 2. History of hypertension. 3. Probable diabetes mellitus. RECOMMENDATIONS: The current medications will continue for now. An echocardiogram is pending. Hemoglobin A1c and followup enzymes are pending as well. From a cardiac standpoint, he is stable for transfer to the floor at this time. We will continue to follow and make further recommendations as needed. Paul Singh MD
[2017-07-19] MEDS: Insulin Lispro (humaLOG) LOW Coverage SC SCH ×4 (14:55→22:09)
--- NOTE | 2017-07-19 21:37 | CARD ---
APPROVED REPORT EKG Measurement Heart [id number] <Conclusion> Sinus bradycardia Septal infarct, age undetermined T wave abnormality, consider anterior ischemia Abnormal ECG
[2017-07-20] MEDS: Pantoprazole 40 mg EC Tab PO SCH (05:34)
[2017-07-20 07:07] LABS: HEMOGLOBIN 15.6 g/dL (14.0-18.0); MEAN CELL VOLUME 84.6 fl (80.0-105.0); MEAN CORPUSCULAR HEMOGLOBIN 28.9 pg (25.0-35.0); MEAN CORPUSCULAR HGB CONC 34.2 g/dl (31.0-37.0); MEAN PLATELET VOLUME 12.5 fl (7.0-11.0); RBC 5.39 10^6/uL (3.5-6.1); RED CELL DISTRIBUTION WIDTH 13.9 % (11.5-14.5); WHITE BLOOD COUNT 12.1 10^3/ul (4.5-11.0)
[2017-07-20 07:25] VITALS: O2SAT 100
[2017-07-20 07:27] LABS: ALB/GLOB RATIO 1.5 (1.1-1.8); ALBUMIN 4.3 g/dL (3.0-4.8); ALT/SGPT 53 U/L (7-56); AST/SGOT 113 U/L (17-59); BLOOD UREA NITROGEN 21 mg/dL (7-21); CALCIUM 9.2 mg/dL (8.4-10.5); GFR AFRICAN-AMERICAN > 60; GFR NON-AFRICAN AMERICAN > 60
[2017-07-20 07:30] VITALS: TEMP 98.9
[2017-07-20] MEDS: Insulin Lispro (humaLOG) LOW Coverage SC SCH (07:54)
--- NOTE | 2017-07-20 08:19 | CP.PCM.PN ---
Subjective - Date & Time of Evaluation Date of Evaluation: 07/20/17 Time of Evaluation: 07:00 - Subjective Subjective: Stable in CCU. He feels OK. No CP or SOB. V/S noted. RSR PE: Lungs: clear Cor.: S1S2 Abd.: soft Ext.: no edema Neuro.: alert I/O= 250/1050 Labs noted: trop = 24.2 ECG 07/19 noted: SB = 56, Evolving anterior VA Objective - Vital Signs/Intake and Output Vital Signs (last 24 hours): Temp Pulse Resp BP Pulse Ox 98.9 F 62 16 114/76 100 07/20/17 04:00 07/20/17 07:20 07/20/17 07:20 07/20/17 04:00 07/20/17 07:20 Intake and Output: 07/20/17 07/20/17 06:59 18:59 Intake Total 250 Output Total 1050 Balance -800 - Medications Medications: Current Medications Acetaminophen (Tylenol 325mg Tab) 650 mg PO Q4H PRN PRN Reason: Pain, Mild (1-3) Last Admin: 07/18/17 15:56 Dose: 650 mg Alprazolam (Xanax) 0.25 mg PO BID PRN PRN Reason: Anxiety Stop: 07/25/17 12:33 Last Admin: 07/18/17 15:56 Dose: 0.25 mg Aspirin (Ecotrin) 81 mg PO DAILY [facility] Last Admin: 07/19/17 09:29 Dose: 81 mg Atorvastatin Calcium (Lipitor) 40 mg PO DIN [facility] Clopidogrel Bisulfate (Plavix) 75 mg PO DAILY [facility] Last Admin: 07/19/17 09:29 Dose: 75 mg Docusate Sodium (Colace) 100 mg PO BID [facility] Last Admin: 07/19/17 09:29 Dose: 100 mg Insulin Human Lispro (Humalog Low) 0 units SC ACHS [facility] PRN Reason: Protocol Last Admin: 07/20/17 07:54 Dose: 1 units Lisinopril (Zestril) 5 mg PO DAILY [facility] Last Admin: 07/19/17 09:29 Dose: 5 mg Metoprolol Succinate (Toprol Xl) 100 mg PO DAILY [facility] Pantoprazole Sodium (Protonix Ec Tab) 40 mg PO 0600 [facility] Last Admin: 07/20/17 05:34 Dose: 40 mg Zolpidem Tartrate (Ambien) 5 mg PO HS PRN PRN Reason: Insomnia - Labs Labs: 07/20/17 05:40 07/20/17 05:40 PT 11.2 SECONDS (9.4-12.5) 07/18/17 11:23 INR 0.97 (0.93-1.08) 07/18/17 11:23 APTT 31.7 Seconds (25.1-36.5) 07/18/17 11:23 Assessment and Plan - Assessment and Plan (Free Text) Assessment: CP/STEMI/PCI occluded LAD 07/18/18 HBP Diabetes Second hand smoke exposure Plan: OOB/Ambulate Echocardiogram this AM Home later today: ASA 81/d, Plavix 75/d (min. 1 year), metorolol ER 100/d, atorvastatin 40/day, lisinopril 5/day Cardiology f/u - 1 week Medical/Diabetes f/u- 1 week Cardiac Rehab to be arranged
--- NOTE | 2017-07-20 08:43 | CARDCATH ---
PROCEDURE DATE: 07/18/2017 PROCEDURES: 1. Selective left and right coronary angiography. 2. Left ventriculography. 3. Percutaneous coronary intervention of proximal left anterior descending with drug-eluting stent. 4. Right femoral arteriography. 5. Angio-Seal deployment. HISTORY: This is a 57-year-old male with history of hypertension, no prior cardiac history who presents to emergency room with complaints of chest pain. He was found to have ST-elevations anteriorly and emergency catheterization was advised. INDICATION: Acute myocardial infarction. FINDINGS: HEMODYNAMICS: The aortic pressure was 170/80, left ventricular pressure of 170/40. CORONARY ANATOMY: 1. The left main stem was normal. 2. The left anterior descending artery was occluded at its ostium. 3. The left circumflex artery had mild diffuse irregularities throughout its course. 4. The right coronary artery was large and dominant with 40% lesion in its mid portion. LEFT VENTRICULOGRAPHY: Left ventriculography was performed in the MARTINEZ projection with hand injection only. This revealed evidence of mild anterolateral hypokinesis. Overall, ejection fraction appeared to be in the 50% range. CORONARY INTERVENTION: The patient had been given 5000 units of intravenous heparin in the emergency room and the ACT was greater than 300 seconds during the procedure. A 3.5 EBU guide catheter was utilized and the lesion in the LAD successfully crossed with the use of a [place] wire. Following this, initial inflations were performed with a 2.0 x 10 mm balloon. Following this, the balloon catheter was removed and intracoronary nitroglycerin was infused. There was evidence of a long diffuse lesion just beyond the critical stenosis and a 2.75 x 26 mm Resolute Welch drug-eluting stent was advanced into the proximal and early mid segment of the vessel and inflated to 12 atmospheres. Following this, the stent balloon was removed and there appeared to be some degree of under deployment of the stent proximally. Subsequently, a 2.75 x 9 mm noncompliant balloon was advanced into the stented segment and multiple inflations performed to 12-16 atmospheres for 30-45 seconds. Following this, there was 30% residual stenosis following the intervention. There was a mild stepdown at the edge of the stent. SALVADOR grade 3 flow was present at the end of the procedure. SALVADOR grade 0 flow had been present prior to intervention. RIGHT FEMORAL ARTERIOGRAM: A right femoral arteriogram was performed in the MARTINEZ projection. This revealed appropriate level of arterial puncture. There was no evidence of significant disease. The puncture site was then closed with deployment of an Angio-Seal device. CONCLUSIONS: 1. Acute anterior wall myocardial infarction secondary to proximal LAD occlusion. 2. Successful PCI of LAD with drug-eluting stent as described above. RECOMMENDATIONS: Given the above findings, aspirin and Plavix therapy will be continued for at least one year. Standard post-myocardial infarction therapy with beta-apolonia, statin, and LACEY inhibitor will be initiated. Serial enzymes and electrocardiograms will be obtained. Lipid profile will be measured as well as hemoglobin A1c. The patient has been transferred to the CCU in guarded condition. Paul Singh MD
[2017-07-20 09:53] VITALS: BP 128/98
[2017-07-20] MEDS ORDERED: Metoprolol Succinate 100 mg XL Tab PO SCH (10:00)
--- NOTE | 2017-07-20 11:14 | CP.PCM.DIS ---
<Tatum Cavazos - Last Filed: 07/20/17 14:03> Provider - Provider Date of Admission: 07/18/17 12:32 Attending physician: Tona Moreno MD Consults: Cardio: [place] ICU: Bey Time Spent in preparation of Discharge (in minutes): 32 Hospital Course - Lab Results Lab Results: Most Recent Lab Values WBC 12.1 10^3/ul (4.5-11.0) H 07/20/17 05:40 RBC 5.39 10^6/uL (3.5-6.1) 07/20/17 05:40 Hgb 15.6 g/dL (14.0-18.0) 07/20/17 05:40 Hct 45.6 % (42.0-52.0) 07/20/17 05:40 MCV 84.6 fl (80.0-105.0) 07/20/17 05:40 MCH 28.9 pg (25.0-35.0) 07/20/17 05:40 MCHC 34.2 g/dl (31.0-37.0) 07/20/17 05:40 RDW 13.9 % (11.5-14.5) 07/20/17 05:40 Plt Count 205 10^3/uL (120.0-450.0) 07/20/17 05:40 MPV 12.5 fl (7.0-11.0) H 07/20/17 05:40 Gran % 78.6 % (50.0-68.0) H 07/19/17 05:00 Lymph % (Auto) 12.7 % (22.0-35.0) L 07/19/17 05:00 [place] % (Auto) 8.1 % (1.0-6.0) H 07/19/17 05:00 Eos % (Auto) 0.5 % (1.5-5.0) L 07/19/17 05:00 Baso % (Auto) 0.1 % (0.0-3.0) 07/19/17 05:00 Gran # 10.61 (1.4-6.5) H 07/19/17 05:00 Lymph # (Auto) 1.7 (1.2-3.4) 07/19/17 05:00 [place] # (Auto) 1.1 (0.1-0.6) H 07/19/17 05:00 Eos # (Auto) 0.1 (0.0-0.7) 07/19/17 05:00 Baso # (Auto) 0.01 K/mm3 (0.0-2.0) 07/19/17 05:00 PT 11.2 SECONDS (9.4-12.5) 07/18/17 11:23 INR 0.97 (0.93-1.08) 07/18/17 11:23 APTT 31.7 Seconds (25.1-36.5) 07/18/17 11:23 Sodium 142 mmol/L (132-148) 07/20/17 05:40 Potassium 4.3 mmol/L (3.6-5.0) 07/20/17 05:40 Chloride 100 mmol/L (98-107) 07/20/17 05:40 Carbon Dioxide 30 mmol/L (21-33) 07/20/17 05:40 Anion Gap 16 (10-20) 07/20/17 05:40 BUN 21 mg/dL (7-21) 07/20/17 05:40 Creatinine 1.2 mg/dl (0.8-1.5) 07/20/17 05:40 Est GFR ( Amer) > 60 07/20/17 05:40 Est GFR (Non-Af Amer) > 60 07/20/17 05:40 POC Glucose (mg/dL) 148 mg/dL (65-110) H 07/19/17 21:47 Random Glucose 161 mg/dL (70-110) H 07/20/17 05:40 Hemoglobin A1c 7.5 % (4.2-6.5) H 07/19/17 05:00 Calcium 9.2 mg/dL (8.4-10.5) 07/20/17 05:40 Total Bilirubin 0.7 mg/dL (0.2-1.3) 07/20/17 05:40 AST 113 U/L (17-59) H D 07/20/17 05:40 ALT 53 U/L (7-56) 07/20/17 05:40 Alkaline Phosphatase 56 U/L (38-126) 07/20/17 05:40 Lactate Dehydrogenase 542 U/L (333-699) 07/18/17 11:23 Total Creatine Kinase 289 U/L (35-230) H 07/18/17 11:23 CK-MB (CK-2) 3.0 ng/mL (0.0-3.6) 07/18/17 11:23 CK-MB (CK-2) % Cancelled 07/18/17 11:23 Troponin I 24.20 ng/mL H* D 07/20/17 05:40 Total Protein 7.2 g/dL (5.8-8.3) 07/20/17 05:40 Albumin 4.3 g/dL (3.0-4.8) 07/20/17 05:40 Globulin 2.9 gm/dL 07/20/17 05:40 Albumin/Globulin Ratio 1.5 (1.1-1.8) 07/20/17 05:40 Triglycerides 117 mg/dL (35-160) 07/19/17 05:00 Cholesterol 154 mg/dL (130-200) 07/19/17 05:00 LDL Cholesterol Direct 65 mg/dL (0-129) 07/19/17 05:00 HDL Cholesterol 63 mg/dL (29-60) H 07/19/17 05:00 TSH 3rd Generation 1.16 mIU/mL (0.46-4.68) 07/19/17 08:00 Blood Type AB POSITIVE 07/18/17 11:24 Blood Type Confirm AB POSITIVE 07/18/17 10:40 Antibody Screen Negative 07/18/17 11:24 BBK History Checked No verified bt 07/18/17 11:24 - Hospital Course Hospital Course: History of Present Illness: Patient 57 year old male past medical history HTN presents with sudden retrosternal chest pain for 3 hours. 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 He rated it 8/10 at the time and throughout his chest wall but did not radiate to his L arm or up his jaw. Patient believed he was having gastritis and took some tums. However when pain did not subside, he decided to come into the ED. Patient admitted to diaphoresis, mild SOB, chest pain with deep inspiration, light headedness, dizziness, and nausea with vomiting x 1. He denies fever, chills, palpitations, abdominal pain, bowel/bladder changes, numbness/tingling/pain in his legs b/l. In the ER patient was noted to have ST elevations in leads V1-4 and depressions in lead I and avL with inverted T waves in leads III. Code Heart was activated at 11:12am and patient was taken for Cardiac cath with Dr. Singh. Patient was given full dose ASA/Plavis 600mg and Heparin bolus prior to being taken for cath. Hospital Course: Patient was admitted to the hospital with acute anterior wall UT. Troponin was as high as 201. Patient went for cardiac catherization with Dr Singh which showed occlusion of LAD (see report for details). Drug Eluding stent was placed. Patient started on Aspirin 81, plavix 75mg PO daily, Lopressor 50mg Q12H and Lipitor 80mg PO HS. Post-cath, Patient went for echocardiogram, official read still pending. Patient was found to have elevated LFTs, Lipitor was decreased to 40mg PO HS. Patient was also found to have a hgA1C of 7.5. Started on Metformin 500mg PO BID once discharged. Patient was seen by heat reader, was given and taught to use an Arkray meter. Importance of keeping blood sugars under control stressed. Action of metformin explained to patient. Information given to patient to read on staying well with diabetes. On day of discharge, patient was doing well. He was ambulating and tolerating diet. Chest pain resolved. Troponins trending down to 24. Patient to follow up with Cardiology outpatient. Patient will need cardiac rehab which is to be coordinated outpatient. Discharge Medications Aspirin 81mg PO daily Plavix 75mg PO daily Lipitor 40mg PO HS Metformin 500mg PO BID Lisinopril 5mg PO daily Lopressor 50mg PO Q12H Discharge Exam - Additional Findings Additional findings: - Constitutional Appears: No Acute Distress - Head Exam Head Exam: ATRAUMATIC, NORMAL INSPECTION, NORMOCEPHALIC - Eye Exam Eye Exam: EOMI, Normal appearance, PERRL Pupil Exam: NORMAL ACCOMODATION, PERRL - ENT Exam ENT Exam: Mucous Membranes Moist - Neck Exam Neck Exam: Full ROM - Respiratory Exam Respiratory Exam: Clear to Ausculation Bilateral, NORMAL BREATHING PATTERN. absent: Rales, Rhonchi, Wheezes - Cardiovascular Exam Cardiovascular Exam: REGULAR RHYTHM, +S1, +S2. absent: Gallop, Rubs, Murmur - GI/Abdominal Exam GI & Abdominal Exam: Soft, Normal Bowel Sounds. absent: Rigid, Tenderness, Mass , Rebound - Extremities Exam Extremities Exam: Normal Inspection. absent: Calf Tenderness, Pedal Edema - Neurological Exam Neurological Exam: Alert, Awake, CN II-XII Intact, Oriented x3 - Psychiatric Exam Psychiatric exam: Normal Affect, Normal Mood - Skin Skin Exam: Dry, Intact, Warm Additional comments: R groin cath site clean and dry- no hematoma or bleeding noted Discharge Plan - Discharge Medications Prescriptions: Aspirin [Ecotrin] 81 mg PO DAILY #30 tabec Atorvastatin [Lipitor] 40 mg PO DAILY #30 tab Clopidogrel [Plavix] 75 mg PO DAILY #30 tab Lisinopril [Zestril] 5 mg PO DAILY #30 tab metFORMIN [glucOPHAGE] 500 mg PO BID #60 tab Metoprolol Tartrate [Lopressor] 50 mg PO Q12 #60 tab - Follow Up Plan Condition: SERIOUS Disposition: HOME/ ROUTINE Instructions: Diabetes Type 2 (DC), Myocardial Infarction (DC), Myocardial Infarction (GEN), Hypertension (DC), Hypertension (GEN) Additional Instructions: 1. Follow up with Cardiology, Dr. Singh as outpatient 2. Take Medications as prescribed. 3. Follow up with primary doctor in 1 week. 4. If symptoms worsen please go to nearest ED. Referrals: [facility] [place] [facility] [place] [facility], [Non-Staff] - Follow up with primary Paul Singh MD [Staff Provider] - <Tona Moreno - Last Filed: 07/20/17 14:16> Provider - Provider Date of Admission: 07/18/17 12:32 Attending physician: Tona Moreno MD Time Spent in preparation of Discharge (in minutes): 35 Hospital Course - Lab Results Lab Results: Micro Results 07/18/17 13:00 Naris MRSA Culture (Admit) - Final MRSA NOT DETECTED Most Recent Lab Values WBC 12.1 10^3/ul (4.5-11.0) H 07/20/17 05:40 RBC 5.39 10^6/uL (3.5-6.1) 07/20/17 05:40 Hgb 15.6 g/dL (14.0-18.0) 07/20/17 05:40 Hct 45.6 % (42.0-52.0) 07/20/17 05:40 MCV 84.6 fl (80.0-105.0) 07/20/17 05:40 MCH 28.9 pg (25.0-35.0) 07/20/17 05:40 MCHC 34.2 g/dl (31.0-37.0) 07/20/17 05:40 RDW 13.9 % (11.5-14.5) 07/20/17 05:40 Plt Count 205 10^3/uL (120.0-450.0) 07/20/17 05:40 MPV 12.5 fl (7.0-11.0) H 07/20/17 05:40 Gran % 78.6 % (50.0-68.0) H 07/19/17 05:00 Lymph % (Auto) 12.7 % (22.0-35.0) L 07/19/17 05:00 [place] % (Auto) 8.1 % (1.0-6.0) H 07/19/17 05:00 Eos % (Auto) 0.5 % (1.5-5.0) L 07/19/17 05:00 Baso % (Auto) 0.1 % (0.0-3.0) 07/19/17 05:00 Gran # 10.61 (1.4-6.5) H 07/19/17 05:00 Lymph # (Auto) 1.7 (1.2-3.4) 07/19/17 05:00 [place] # (Auto) 1.1 (0.1-0.6) H 07/19/17 05:00 Eos # (Auto) 0.1 (0.0-0.7) 07/19/17 05:00 Baso # (Auto) 0.01 K/mm3 (0.0-2.0) 07/19/17 05:00 PT 11.2 SECONDS (9.4-12.5) 07/18/17 11:23 INR 0.97 (0.93-1.08) 07/18/17 11:23 APTT 31.7 Seconds (25.1-36.5) 07/18/17 11:23 Sodium 142 mmol/L (132-148) 07/20/17 05:40 Potassium 4.3 mmol/L (3.6-5.0) 07/20/17 05:40 Chloride 100 mmol/L (98-107) 07/20/17 05:40 Carbon Dioxide 30 mmol/L (21-33) 07/20/17 05:40 Anion Gap 16 (10-20) 07/20/17 05:40 BUN 21 mg/dL (7-21) 07/20/17 05:40 Creatinine 1.2 mg/dl (0.8-1.5) 07/20/17 05:40 Est GFR ( Amer) > 60 07/20/17 05:40 Est GFR (Non-Af Amer) > 60 07/20/17 05:40 POC Glucose (mg/dL) 148 mg/dL (65-110) H 07/19/17 21:47 Random Glucose 161 mg/dL (70-110) H 07/20/17 05:40 Hemoglobin A1c 7.5 % (4.2-6.5) H 07/19/17 05:00 Calcium 9.2 mg/dL (8.4-10.5) 07/20/17 05:40 Total Bilirubin 0.7 mg/dL (0.2-1.3) 07/20/17 05:40 AST 113 U/L (17-59) H D 07/20/17 05:40 ALT 53 U/L (7-56) 07/20/17 05:40 Alkaline Phosphatase 56 U/L (38-126) 07/20/17 05:40 Lactate Dehydrogenase 542 U/L (333-699) 07/18/17 11:23 Total Creatine Kinase 289 U/L (35-230) H 07/18/17 11:23 CK-MB (CK-2) 3.0 ng/mL (0.0-3.6) 07/18/17 11:23 CK-MB (CK-2) % Cancelled 07/18/17 11:23 Troponin I 24.20 ng/mL H* D 07/20/17 05:40 Total Protein 7.2 g/dL (5.8-8.3) 07/20/17 05:40 Albumin 4.3 g/dL (3.0-4.8) 07/20/17 05:40 Globulin 2.9 gm/dL 07/20/17 05:40 Albumin/Globulin Ratio 1.5 (1.1-1.8) 07/20/17 05:40 Triglycerides 117 mg/dL (35-160) 07/19/17 05:00 Cholesterol 154 mg/dL (130-200) 07/19/17 05:00 LDL Cholesterol Direct 65 mg/dL (0-129) 07/19/17 05:00 HDL Cholesterol 63 mg/dL (29-60) H 07/19/17 05:00 TSH 3rd Generation 1.16 mIU/mL (0.46-4.68) 07/19/17 08:00 Blood Type AB POSITIVE 07/18/17 11:24 Blood Type Confirm AB POSITIVE 07/18/17 10:40 Antibody Screen Negative 07/18/17 11:24 BBK History Checked No verified bt 07/18/17 11:24 Attending/Attestation - Attestation I have personally seen and examined this patient.: Yes I have fully participated in the care of the patient.: Yes I have reviewed all pertinent clinical information, including history, physical exam and plan: Yes Notes (Text): 07/20/17 57 year old male with past medical history of hypertension who presented with chest pain found to have STEMI. He underwent cardiac cath with LAD stent placement. He is on aspirin, plavix, statin, metoprolol and lisinopril. AST was elevated today and his statin dose was reduced. Recommended to monitor LFTs closely as outpatient. A1C was elevated at 7.5. He was seen by electric accounting machine operator and counselled. To start metformin later today/tomorrow. 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 Follow up on echo. Cardiac rehab. Monitor LFTs and fingersticks as outpatient. Tona Moreno MD Hospitalist.
[2017-07-20 12:05] VITALS: PULSE 72; RESP 28
--- NOTE | 2017-07-21 08:41 | CARD ---
APPROVED REPORT EXAM: Two-dimensional and M-mode echocardiogram with Doppler and color Doppler. Other Information Quality : GoodRhythm : INDICATION Acute AMI with occluded LAD > PCI/ SHAI. 2D DIMENSIONS Left Atrium (2D)3.7 (1.6-4.0cm)IVSd1.2 (0.7-1.1cm) LVDd4.1 (3.9-5.9cm)PWd1.1 (0.7-1.1cm) LVDs3.2 (2.5-4.0cm)FS (%) 23.7 % LVEF (%)48.0 (>50%) M-Mode DIMENSIONS Aortic Root3.50 (2.2-3.7cm)Aortic Cusp Exc.1.60 (1.5-2.0cm) Aortic Valve AoV Peak Dctwsgop764.0cm/Gema P 1/2 [id number] Mitral Valve MV E Vgzrwvlj15.2cm/sMV A Nlelnyfi92.6cm/sE/A ratio1.4 TDI Lateral E' Peak V10.60cm/sMedial E' Peak V6.97cm/sE/Lateral E'7.6 E/Medial E'11.5 Pulmonary Valve PV Peak Rwkzwzet39.2cm/sPV Peak Grad.3mmHg Tricuspid Valve TR Peak [id number]/sRAP [id number] Peak Gr.29mmHg [id number] LEFT VENTRICLE The left ventricle is normal size. There is normal left ventricular wall thickness. Left ventricle systolic function is mildly impaired. The Ejection Fraction is 45-50%. The septum is moderately hypokinetic. RIGHT VENTRICLE The right ventricle is normal size. ATRIA The left atrium size is normal. The right atrium size is normal. The interatrial septum is intact with no evidence for an atrial septal defect. AORTIC VALVE The aortic valve is normal in structure. There is mild aortic regurgitation. MITRAL VALVE The mitral valve is normal in structure. Mitral regurgitation is mild. TRICUSPID VALVE The tricuspid valve is normal in structure. There is trace tricuspid regurgitation. PULMONIC VALVE The pulmonary valve is normal in structure. GREAT VESSELS The aortic root is normal in size. PERICARDIAL EFFUSION There is no pericardial effusion. <Conclusion> The left ventricle is normal size. There is normal left ventricular wall thickness. Left ventricle systolic function is mildly impaired. The Ejection Fraction is 45-50%. The septum is moderately hypokinetic. There is mild aortic regurgitation. Mitral regurgitation is mild.
== END 2017-07-20 13:26 | disposition home or self-care (01) | DRG 853 ==
LOC: ED 11:11 → CATH 11:46 → ICU 12:32
PROVIDERS: ADMIT Internal Medicine; ATTEND Internal Medicine
PROC: 027034Z Dilation of Coronary Artery, One Artery with Drug-eluting Intraluminal Device, Percutaneous Approach (ICD-10-PCS; principal; 2017-07-18)
PROC: 4A023N7 Measurement of Cardiac Sampling and Pressure, Left Heart, Percutaneous Approach (ICD-10-PCS; 2017-07-18)
PROC: B2111ZZ Fluoroscopy of Multiple Coronary Arteries using Low Osmolar Contrast (ICD-10-PCS; 2017-07-18)
PROC: B2151ZZ Fluoroscopy of Left Heart using Low Osmolar Contrast (ICD-10-PCS; 2017-07-18)
DX: I21.09 ST elevation (STEMI) myocardial infarction involving other coronary artery of anterior wall (principal); I25.10 Atherosclerotic heart disease of native coronary artery without angina pectoris; I16.0 Hypertensive urgency; I10 Essential (primary) hypertension; E11.9 Type 2 diabetes mellitus without complications; K29.70 Gastritis, unspecified, without bleeding; Z77.22 Contact with and (suspected) exposure to environmental tobacco smoke (acute) (chronic)